=== PATIENT | male | born 1930 | race Caucasian/White ===

== ENCOUNTER → 2019-01-08 | Outpatient (CLI) | payer OTHER ==
[~2019-01-08] MED LIST: ACETAMINOPHEN325 M1 PO; ALEVE220 MG PO; B COMPLEX-VITA1 EACH PO; CALCIUM AND MA1 EACH PO; DICLOFENAC; ENDUR-ACIN500 MG PO; GLUCOSAMINE &1 EACH PO; IBUPROFEN 200200 M1 PO; IBUPROFEN 800800 M1 PO; LEVAQUIN 750 M750 MG PO; LEVOTHYROXIN0.112 M1 PO; LISINOPRIL10 MG PO; MIRALAX17 GM PO; MULTIVITAMINS PO; NABUMETONE 500500 M1 PO; NAPROSYN500 MG PO; NORCO 5-325 TA1 EACH PO; NUCYNTA50 MG PO; OXYCODONE HCL 55 MG PO; PENICILLIN VK500 MG PO; PRILOSEC OTC20 MG PO; SENNA-TIME S T1 EACH PO; SKELAXIN 800 M800 M1 PO; SYNTHROID50 MCG PO; TIZANIDINE HCL4 MG PO; TRAMADOL 50 MG50 MG PO; VIAGRA50 MG PO; VITAMIN D1000 UNI1 PO; VITCB500GO PO
== END ==
LOC: HYPER 07:19
DX: T81.89XA Other complications of procedures, not elsewhere classified, initial encounter (principal); S00.03XA Contusion of scalp, initial encounter; K21.9 Gastro-esophageal reflux disease without esophagitis; Z79.82 Long term (current) use of aspirin; X58.XXXA Exposure to other specified factors, initial encounter; Y92.89 Other specified places as the place of occurrence of the external cause; Y93.89 Activity, other specified; Y99.8 Other external cause status; Y83.8 Other surgical procedures as the cause of abnormal reaction of the patient, or of later complication, without mention of misadventure at the time of the procedure

== ENCOUNTER → 2019-01-13 | Outpatient (CLI) | payer OTHER, MEDICARE | LOC: HYPER 01-08 10:42 | DX: T81.89XD Other complications of procedures, not elsewhere classified, subsequent encounter (principal); S00.03XD Contusion of scalp, subsequent encounter; E07.89 Other specified disorders of thyroid; K21.9 Gastro-esophageal reflux disease without esophagitis; Z79.82 Long term (current) use of aspirin; X58.XXXD Exposure to other specified factors, subsequent encounter; Y83.8 Other surgical procedures as the cause of abnormal reaction of the patient, or of later complication, without mention of misadventure at the time of the procedure ==

== ENCOUNTER → 2019-01-17 | Outpatient (CLI) | payer OTHER, MEDICARE | LOC: HYPER 06:18 | DX: T81.89XD Other complications of procedures, not elsewhere classified, subsequent encounter (principal); S00.03XD Contusion of scalp, subsequent encounter; E07.89 Other specified disorders of thyroid; K21.9 Gastro-esophageal reflux disease without esophagitis; Z79.82 Long term (current) use of aspirin; X58.XXXD Exposure to other specified factors, subsequent encounter; Y83.8 Other surgical procedures as the cause of abnormal reaction of the patient, or of later complication, without mention of misadventure at the time of the procedure ==

== ENCOUNTER 2019-01-23 05:36 | Day surgery (SDC) | payer OTHER, MEDICARE ==
[~2019-01-23] VITALS: Ht 172.7 cm; Wt 111.1 kg
[~2019-01-23 05:36] MED LIST changes: -ACETAMINOPHEN325 M1 PO; -MIRALAX17 GM PO; -OXYCODONE HCL 55 MG PO; -SENNA-TIME S T1 EACH PO
[2019-01-23 06:34] VITALS: BP 161/67
[2019-01-23] MEDS ORDERED: LEVAQUIN 750 M750 MG PO (08:39)
[2019-01-23] MEDS ORDERED: PENICILLIN VK500 MG PO (08:39)
[2019-01-23] MEDS ORDERED: ACETAMINOPHEN325 M1 PO (08:40)
[2019-01-23] MEDS ORDERED: OXYCODONE HCL 55 MG PO (08:40)
[2019-01-23] MEDS ORDERED: MIRALAX17 GM PO (08:40)
[2019-01-23] MEDS ORDERED: SENNA-TIME S T1 EACH PO (08:40)
[2019-01-23 08:58] VITALS: BP 161/67
--- NOTE | 2019-01-27 10:14 | O ---
[facility] [place] [address] OPERATIVE REPORT Name: BULL BAINS Room #: [place] [facility].R.#: [id number] Admission: 01/23/19 Attend Phys: Derek Vee MD Discharge: 01/23/19 Date of : [birth year] Report #: [id number] THIS REPORT FOR: //name// CC: Derek Ramirez DATE OF SERVICE: 01/23/2019 PROCEDURE PERFORMED: Excisional debridement of scalp wound down to bone. PREPROCEDURAL DIAGNOSIS: Scalp wound. POSTPROCEDURAL DIAGNOSES: Infected hematoma. SURGEON: Dr. Vee. MAINFRAME APPLICATIONS DEVELOPER: None. ANESTHESIA: Local. ESTIMATED BLOOD LOSS: 20 mL. URINE OUTPUT: Not measured. COMPLICATIONS: None. SPECIMENS: 1. Tissue sent for Gram stain, anaerobic, and aerobic culture. 2. Tissue sent for histopathology. FINDINGS: 1. 7cm long x 3.5cm wide x 0.5cm deep at conclusion of procedure. 2. Surgicel left in wound bed. INDICATIONS FOR PROCEDURE: The patient is a very pleasant 88-year-old gentleman who had a recent biopsy on his scalp. He developed a severe wound following this. I was consulted as an outpatient for surgical debridement. The risks, benefits and alternatives of the procedure were discussed with the patient and daughter. The risks discussed included but were not limited to the risk of bleeding, infection, worsening wound, need for potential flap closure in the future, which would require a plastic consult, anesthesia (cardiac, pulmonary, neurologic type complications), and . The patient and daughter had the opportunity to ask questions. All questions were answered to the best of my ability. At the end of the discussion, they did wish to proceed with surgery. DESCRIPTION OF PROCEDURE: After informed consent was obtained of the above, the patient was taken to the operating room and placed in the supine position. [address] [address] OPERATIVE REPORT Name: NARABULL Raul Room #: DEP [place] Lit#: [id number] Admission: 01/23/19 Attend Phys: Derek Vee MD Discharge: 01/23/19 Date of : [birth year] Report #: [id number] General anesthesia was induced. Preprocedure antibiotics were administered. His scalp was prepped and draped in the usual sterile fashion and a timeout was performed. Electrocautery was used to excise fresh margins on the scalp wound. The scalp wound was rather large in size. The scalp wound at the end of the debridement measuring 7 cm x 3.5 cm x 0.5 cm deep. The necrotic tissues of the scalp wound were then excised using electrocautery. Unfortunately, the wound did go all the way to the skull bone. The patient was hemostatic. A piece of Surgicel was placed in the wound bed. The wound was irrigated out with about 3 liters of copious warm irrigation. The wound was then packed with Dakin's soaked gauze. The patient tolerated the procedure well and there were no adverse events throughout the course of the procedure. At the end of the procedure, he was extubated and transferred to the PACU in stable condition. <ELECTRONICALLY SIGNED> By: Derek Vee MD 01/27/19 [id number] Derek Vee MD /nt
--- NOTE | 2019-01-31 12:06 | PATH ---
[facility] [address] [place] [address] PATHOLOGY RPT PROCEDURE Name: BULL BAINS Room #: DEP [facility] [place] M.R.#: [id number] Admission: 01/23/19 Date of : [birth year] Discharge: 01/23/19 Report #: [id number] Path Case #: [id number] [facility] Accession Number: [id number] . 01 Material submitted: . scalp - SCALP TISSUE . 01 Clinical history: . localized swelling, mass and lump in head . 02 Diagnosis: Skin, scalp mass, excisional biopsy: - POORLY DIFERENTIATED ANGIOSARCOMA (PLEASE SEE COMMENT). - EXTENDS TO ALL SAMPLED MARGINS. - Extensive surface ulceration identified. LBQ 01/31/2019 1128 Local . 02 Comment: Examination shows a poorly differentiated epithelioid neoplasm with numerous red cell lakes, occasional vascular channels, increased mitotic activity, and areas of necrosis. Melanin pigmentation, or overlying malignant epithelial component are not identified. Multiple properly controlled immunohistochemical stains are performed on block A2 to further characterize this neoplasm. The malignant cells show strong membranous reactivity with CD31 which is also reactive in the vessels present in the background. CD34 shows no reactivity within the malignant cells. The other non-reactive immunohistochemical stains included, melan A ([place]-1), p63, AE1/AE3, S100 as well as thrombomodulin. AE1/AE3 (epithelial/carcinoma marker) is non-reactive as well. D2-40 highlights lymphatics. CD34 is reactive within the background non-neoplastic vessels within the lesion. 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 . Dr. Aisha Raines (Board Certified Dermatopathologist) along with additional pathologists has seen this case and concurs with my diagnosis. . Dr. Derek Vee was informed of the preliminary findings in the morning of 01/28/19, and updated constantly with the final interpretation conveyed to him at approximately 3:30 p.m. on 01/30/19. (IUV/db; 01/31/2019) . 02 Electronically signed: . Tabitha Chan MD, Pathologist NPI- [id number] . 01 Gross description: . Received in formalin, labeled "Bull Bains, scalp tissue", [place] [address] PATHOLOGY RPT PROCEDURE Name: BULL BAINS Room #: DEP [facility] M.R.#: [id number] Admission: 01/23/19 Date of : 07/20/[birth year] Discharge: 01/23/19 Report #: [id number] Path Case #: [id number] unoriented roughly oval segment chváez-brown of skin measuring 1.7 x 1.5 cm excised to a depth of 0.4 cm. The resection margins are inked black. The skin surface is irregular and diffusely hemorrhagic. Serially sectioned into 6 pieces and entirely submitted in A1-A3 (contiguous sections). ([facility]; 01/23/2019) [facility] 01/23/2019 2102 [facility] . 02 Pathologist provided ICD-10: C49.0 . 02 CPT . 276529, P28020, [id number] Specimen Comment: A courtesy copy of this report has been sent to [phone] Specimen Comment: [phone] Specimen Comment: Report sent to / DR PEREZ Performed at: [address] [facility], [place] [id number] MD Sachin Hills MD Phone: [phone] Performed at: [address] [id number] MD Tabitha Chan MD Phone: [phone]
== END 2019-01-23 09:22 | disposition home or self-care (01) ==
LOC: OR 05:36 → TBA 05:37 → OR 08:54
DX: T81.89XA Other complications of procedures, not elsewhere classified, initial encounter (principal); S00.03XA Contusion of scalp, initial encounter; C49.0 Malignant neoplasm of connective and soft tissue of head, face and neck; E03.9 Hypothyroidism, unspecified; G47.30 Sleep apnea, unspecified; Z98.890 Other specified postprocedural states; Z79.899 Other long term (current) drug therapy; X58.XXXA Exposure to other specified factors, initial encounter; Y93.89 Activity, other specified; Y92.89 Other specified places as the place of occurrence of the external cause; Y99.8 Other external cause status; Y83.8 Other surgical procedures as the cause of abnormal reaction of the patient, or of later complication, without mention of misadventure at the time of the procedure
CPT/HCPCS: 50010; 50101; 50386; 50403; 53078; 57103; 62110; 62900; 70005

== ENCOUNTER → 2019-02-03 | Outpatient (CLI) | payer OTHER, MEDICARE ==
[~2019-02-03] MED LIST changes: +ACETAMINOPHEN325 M1 PO; +MIRALAX17 GM PO; +OXYCODONE HCL 55 MG PO; +SENNA-TIME S T1 EACH PO
== END ==
LOC: HYPER 07:12
DX: T81.89XD Other complications of procedures, not elsewhere classified, subsequent encounter (principal); S00.93XD Contusion of unspecified part of head, subsequent encounter; C43.4 Malignant melanoma of scalp and neck; K21.9 Gastro-esophageal reflux disease without esophagitis; Z79.82 Long term (current) use of aspirin; X58.XXXD Exposure to other specified factors, subsequent encounter; Y83.8 Other surgical procedures as the cause of abnormal reaction of the patient, or of later complication, without mention of misadventure at the time of the procedure